=== PATIENT | male | born 1990 | race Caucasian/White ===

== ENCOUNTER 2021-10-03 13:45 | Inpatient (IN) | payer BC ==
[~2021-10-03] VITALS: Ht 190.5 cm; Wt 122.0 kg
[2021-10-03 14:30] LABS: BASOPHILS ABSOLUTE AUTO 0.08 K/mm3 (0.00-0.23); BASOPHILS PERCENT AUTO 1 % (0-2); EOSINOPHILS ABSOLUTE AUTO 0.21 K/mm3 (0.00-0.68); EOSINOPHILS PERCENT AUTO 2 % (0-6); Hematocrit 46.9 % (37.0-53.0); IMMATURE GRAN ABSOLUTE AUTO 0.06 K/mm3 (0.00-0.10); IMMATURE GRAN PERCENT AUTO 1 % (0-1); LYMPHOCYTES ABSOLUTE AUTO 2.35 K/mm3 (0.84-5.20); LYMPHOCYTES PERCENT AUTO 20 % (21-46); MONOCYTES ABSOLUTE AUTO 0.95 K/mm3 (0.16-1.47); MONOCYTES PERCENT AUTO 8 % (4-13); Mean Corpuscular HGB 30.1 pg (26.0-34.0); Mean Corpuscular HGB Conc 34.1 g/dL (31.5-36.5); Mean Corpuscular Volume 88 fL (80-100); Mean Platelet Volume 9.5 fL (9.1-12.4); NEUTROPHILS ABSOLUTE AUTO 8.18 K/mm3 (1.96-9.15); NEUTROPHILS PERCENT AUTO 69 % (41-73); Platelet Count 367 K/mm3 (150-400); RDW Coefficient Variation 12.1 % (11.7-14.2); RDW Standard Deviation 38.9 fL (35.1-46.3); Red Blood Cell Count 5.31 M/mm3 (4.30-5.90); White Blood Cell Count 11.83 K/mm3 (4.00-11.30)
[2021-10-03 14:34] LABS: Alanine Aminotransfer (ALT/SGP 60 U/L (12-78); Albumin, Blood 4.3 g/dL (3.4-5.0); Alk Phos 59 U/L (50-136); Anion Gap 8 mmol/L (6-16); Aspartate Aminotrans (AST/SGOT 24 U/L (12-37); Bilirubin, Total 0.9 mg/dL (0.1-1.0); Blood Urea Nitrogen 13 mg/dL (8-24); Bun/Creatinine Ratio 10.2 (12.0-20.0); CO2, Blood 22 mmol/L (21-32); Calcium, Blood 9.7 mg/dL (8.5-10.1); Chloride, Blood 110 mmol/L (98-108); Creatinine, Blood 1.27 mg/dL (0.60-1.20); Globulin, Blood 4.4 g/dL (2.2-4.0); Glomerular Filtration Rate >60 (60-); Glucose, Blood 94 mg/dL (70-99); Potassium, Blood 4.3 mmol/L (3.5-5.5); Sodium, Blood 140 mmol/L (136-145); Total Protein, Blood 8.7 g/dL (6.4-8.2)
[2021-10-03 14:46] LABS: International Normalized Ratio 1.09; Prothrombin Time Results 11.4 Sec (9.7-11.5)
[2021-10-03] MEDS ORDERED: Zestril30 MG PO (17:55)
--- NOTE | 2021-10-03 18:49 | NUR ---
ADMISSION: Patient arrived to PCU 19 via gurney and was able to ambulate to the bed IND, some tachypnea noted with ambulation. He is alert and oriented. NO C/O CP at this time, he reports exertional dyspnea for the last two days or so. He C/O a mild head ache that has been present for approx 5 days, relieved with excedrin at home. HRR, ST in the low 100s. LS Dim in the bases, BIOX 93-95% on RA. BT+. PPP. Blood pressure a little high, pt states he has hypertension and takes lisinopril 30 mg daily at home. Hep gtt infusing at 17u/kg/hr. He is oriented to his room and call light. at bedside. Patient denies other needs at this time. Will continue to monitor.
--- NOTE | 2021-10-03 20:01 | NUR ---
[facility] TO NOTIFY OF CRITICAL RESULT: [phone]. THIS IS INCREASED FROM [phone]. CALL PLACED TO MD BE. MD BE VERIFIED PT WAS ON HEPARIN GTT PER EMAR. NO CARDIOLOGY CONSULT ORDERED. ECHO SCHEDULED FOR AM.
--- NOTE | 2021-10-04 04:31 | NUR ---
SHIFT SUMMARY PT A&OX4, PLEASANT. SP02>92% ON RA. WHILE PT WAS SLEEPING, SATS WOULD DECREASE MOMENTARILY TO AROUND 84%. PT PLACED ON 2L NC WHILE SLEEPING WITH NO FURTHER DESATTING ISSUES. SOB W/ EXERTION. TELEMETRY SHOWS NSR, HR 70'S-90'S. PT DENIES PAIN. PT UP TO BATHROOM SBA TO VOID. HEPARIN INFUSING PER EMAR. NS X1 BAG INFUSING PER EMAR. PT SLEPT OFF AND ON T/O NIGHT. C/O ABOUT BEING WOKEN UP FOR LABS ETC MULTIPLE TIMES. CALL LIGHT IN REACH.
[2021-10-04 10:11] LABS: Anion Gap 7 mmol/L (6-16); Blood Urea Nitrogen 13 mg/dL (8-24); Bun/Creatinine Ratio 11.1 (12.0-20.0); CO2, Blood 23 mmol/L (21-32); Calcium, Blood 9.2 mg/dL (8.5-10.1); Chloride, Blood 109 mmol/L (98-108); Creatinine, Blood 1.17 mg/dL (0.60-1.20); Glomerular Filtration Rate >60 (60-); Glucose, Blood 121 mg/dL (70-99); Potassium, Blood 4.3 mmol/L (3.5-5.5); Sodium, Blood 139 mmol/L (136-145)
--- NOTE | 2021-10-04 17:45 | NUR ---
SHIFT SUMMARY PT IS A&O, PLEASANT AND CO-OP WITH CARE. [facility]DEPENENT IN AND [facility]. PT REPORTED IMPROVEMENT IN BREATHING TODAY OVER YESTERDAY. REPORTED BECOMING A LITTLE SOB WHEN GETTING UP TO BTHRM, BUT RECOVERING WELL. ECHO DONE IN TODAY. U/S LATER RETURNED FOR MORE PICTURES JUST RECENTLY. BP ELEVATED ALL DAY. DR SMALLWOOD AWARE. PT REPORTED THAT HE USUALLY TAKES HIS BP MED AT HOME AND HASN'T HAD THEM WHILE HERE. PT REPORTED STEVENS D/T BP; TYLENOL GIVEN PER EMAR. PT WAS TO POSSIBLY D/C TO HOME TODAY, BUT ECHO REPORT HAS NOT POSTED OF YET. PT REMAINS ON HEPARIN DRIP FOR B/L PE'S; RATE UNCHANGED TO PRESENT THIS SHIFT. PHARMACY MANAGING. IN PRESENTLY TO VISIT. PT DENIED FURTHER NEEDS AT THIS TIME. CALL LT IN REACH.
[2021-10-05 03:56] LABS: Hematocrit 42.5 % (37.0-53.0); Hemoglobin 14.3 g/dL (13.5-17.5); Mean Platelet Volume 9.7 fL (9.1-12.4); Platelet Count 310 K/mm3 (150-400)
--- NOTE | 2021-10-05 06:16 | NUR ---
SHIFT SUMMARY: PT REPORTS DECREASE IN SOB WITH EASE IN GETTING UP TO THE BATHROOM. PT HAD A 6 SECOND PAUSE ON TELEMETRY WHILE ASLEEP-ASYMPTOMATIC. CARDIOLOGY CONSULT ENTERED PER DR. BOYKIN. VSS W/NO CHANGE IN BP.
[2021-10-05] MEDS ORDERED: XARELTO15 M1 PO (12:28)
[2021-10-05] MEDS ORDERED: XARELTO20 MG PO (12:29)
--- NOTE | 2021-10-05 13:26 | NUR ---
DISCHARGE TEACHING REVIEWED WITH PT INCLUDING MEDICATION LIST, NEW PRESCRIPTIONS, EDUCATION MATERIAL AND FOLLOW UP APPOINTMENTS. PT VERBALIZES UNDERSTANDING OF DISCHARGE TEACHING AND HAS NO QUESTIONS OR CONCERNS AT THIS TIME. IV TO R AC REMOVED, CATHETER INTACT, SITE WNL. PRESCRIPTIONS HAVE BEEN SENT TO [facility] PER PT REQUEST. PT VERBALIZES UNDERSTANDING TO PICK THEM UP AND TAKE ALL MEDICATIONS PRESCRIBED. ALL BELONGINGS WILL BE SENT HOME WITH PT. PT DENIES ANY QUESTIONS OR CONCERNS AT THIS TIME, NO FURTHER DISCHARGE NEEDS IDENTIFIED. PT IS AWAITING ARRIVAL OF HIS RIDE HOME.
== END 2021-10-05 13:30 | disposition home or self-care (01) | DRG 175 ==
LOC: ER 13:45 → PCU 15:30
PROVIDERS: Family Medicine; Physician Assistant; Student in an Organized Health Care Education/Training Program; ADMIT Internal Medicine
DX: I26.99 Other pulmonary embolism without acute cor pulmonale (principal); I21.A1 Myocardial infarction type 2; I11.9 Hypertensive heart disease without heart failure; R77.8 Other specified abnormalities of plasma proteins; I27.20 Pulmonary hypertension, unspecified; G47.33 Obstructive sleep apnea (adult) (pediatric); Z88.0 Allergy status to penicillin; E78.5 Hyperlipidemia, unspecified; I49.5 Sick sinus syndrome; Z86.16 Personal history of COVID-19; F10.20 Alcohol dependence, uncomplicated
CPT/HCPCS: 36415; 80048; 80053; 83880; 84484; 85014; 85018; 85025; 85049; 85520; 85610; 85730; 93005; 93010; 94761; 96374; 99285-25; A9270; C8929; J1644; J7030; J7060; Q9957

== ENCOUNTER 2021-10-07 12:38 | Emergency (ER) | payer BC ==
[~2021-10-07] VITALS: Ht 190.5 cm; Wt 123.4 kg
[~2021-10-07 12:38] MED LIST: XARELTO15 M1 PO; XARELTO20 MG PO; Zestril30 MG PO
[2021-10-07] MEDS ORDERED: SUPPORT XX (15:18)
== END 2021-10-07 15:30 | disposition home or self-care (01) ==
LOC: ER 12:38
DX: R60.0 Localized edema (principal); Z88.0 Allergy status to penicillin; Z79.899 Other long term (current) drug therapy
CPT/HCPCS: 93971; 99283-25